=== PATIENT | female | born 1995 | race Hispanic/Latino ===

== ENCOUNTER → 2018-06-11 | Outpatient (CLI) | payer BC | END | disposition home or self-care (01) | LOC: SHCH 14:35 | PROVIDERS: ATTEND Internal Medicine Cardiovascular Disease | DX: R00.2 Palpitations (principal) | CPT/HCPCS: 93306 ==

== ENCOUNTER → 2025-04-05 | Outpatient (CLI) | payer OTHER | END | disposition home or self-care (01) | LOC: LAB 12:48 | PROVIDERS: ATTEND Hospitalist | DX: U07.1 COVID-19 (principal) | CPT/HCPCS: 87426 ==